=== PATIENT | male | born 1940 | race Caucasian/White ===

== ENCOUNTER 2017-01-27 16:46 | Inpatient (IN) | payer MEDICARE, OTHER ==
[2017-01-27 17:45] LABS: Basophils % (Auto) 0.3 % (0.0-1.8); Hematocrit 52.9 % (35.5-45.6); Hemoglobin 17.9 gm/dl (11.8-15.2); Mean Corpuscular HGB Conc 34 % (32-34); Mean Corpuscular Hemoglobin 30 pg (28-32); Mean Corpuscular Volume 88 fl (84-94); Platelet Count 203 K/mm3 (140-440); Red Blood Count 6.01 M/mm3 (3.65-5.03); White Blood Count 6.4 K/mm3 (4.5-11.0)
[2017-01-27 17:47] LABS: Albumin 5.3 g/dL (3.9-5); Albumin/Globulin Ratio 1.2 %; BUN/Creatinine Ratio 14.8; Bilirubin,Total 1.1 mg/dL (0.1-1.2); Calcium 10.1 mg/dL (8.4-10.2); Chloride 88.8 mmol/L (98-107); Total Protein 9.9 g/dL (6.3-8.2)
[2017-01-27 17:51] LABS: Potassium 4.4 mmol/L (3.6-5.0)
[2017-01-27 18:05] LABS: Bilirubin,Urine NEG (Negative); Blood,Urine NEG (Negative); Ketones,Urine TR mg/dL (Negative); Leukocyte Esterase,Urine NEG (Negative); Mucus,Urine 2+ /HPF; Nitrite,Urine NEG (Negative)
[2017-01-27] MEDS ORDERED: MORPHINE IV ONE (18:07)
[2017-01-27] MEDS ORDERED: NACL 0.9% 1000 ML 2,000 ML IV ONE (18:07)
[2017-01-27] MEDS ORDERED: ZOFRAN IV ONE (18:07)
--- NOTE | 2017-01-27 18:08 | Emergency Department Report ---
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 He is previously unknown to me. He reports no past medical history does not have a primary care doctor. The patient presents to the ER with left lower quadrant abdominal pain, profuse nausea and vomiting for the past 2 days. He indicates the pain increases with palpation and range of motion, and decreases with rest. No testicular pain, no irritative or obstructive urinary symptoms, reports decreasing defecation and flatulence. MD Complaint: abdominal pain -: Gradual Location: LLQ Migration to: no migration Severity: moderate Quality: cramping, aching Consistency: constant Improves With: rest Worsens With: movement Associated Symptoms: vomiting, diarrhea, anorexia - Related Data Home Medications Medication Instructions Recorded Confirmed Last Taken No Known Home Medications [No 01/27/17 01/27/17 Unknown Reported Home Medications] Allergies Allergy/AdvReac Type Severity Reaction Status Date / Time No Known Allergies Allergy Verified 01/27/17 19:48 ED Review of Systems ROS: Stated complaint: NAUSEA/VOMITING Other details as noted in HPI Constitutional: malaise Eyes: denies: eye discharge ENT: denies: epistaxis Respiratory: denies: cough Cardiovascular: denies: chest pain Gastrointestinal: abdominal pain, nausea, vomiting Genitourinary: denies: dysuria Musculoskeletal: denies: back pain Skin: denies: lesions Neurological: weakness. denies: headache ED Past Medical Hx - Past Medical History Previous Medical History?: No - Surgical History Past Surgical History?: Yes Additional Surgical History: right shoulder surgery - Social History Smoking Status: Never Smoker Substance Use Type: None - Medications Home Medications: Home Medications Medication Instructions Recorded Confirmed Last Taken Type No Known Home Medications [No 01/27/17 01/27/17 Unknown History Reported Home Medications] ED Physical Exam - General Limitations: Language Barrier General appearance: alert, in no apparent distress - Head Head exam: Present: atraumatic, normocephalic - Eye Eye exam: Present: normal appearance, EOMI. Absent: nystagmus - ENT ENT exam: Present: normal exam, normal orophraynx, mucous membranes moist, normal external ear exam - Neck Neck exam: Present: normal inspection, full ROM. Absent: tenderness, meningismus - Respiratory Respiratory exam: Present: normal lung sounds bilaterally. Absent: respiratory distress, wheezes, rales, rhonchi, stridor, chest wall tenderness, accessory muscle use, decreased breath sounds, prolonged expiratory - Cardiovascular Cardiovascular Exam: Present: normal rhythm, tachycardia, normal heart sounds. Absent: systolic murmur, diastolic murmur, rubs, gallop - GI/Abdominal GI/Abdominal exam: Present: soft, tenderness, diminished bowel sounds. Absent: distended, guarding, rebound, pulsatile mass - Rectal Rectal exam: Present: deferred - Extremities Exam Extremities exam: Present: normal inspection, full ROM, normal capillary refill. Absent: pedal edema, joint swelling, calf tenderness - Back Exam Back exam: Present: normal inspection, full ROM. Absent: tenderness, CVA tenderness (R), CVA tenderness (L), muscle spasm, paraspinal tenderness, vertebral tenderness - Neurological Exam Neurological exam: Present: alert, oriented X3, other (Extraocular movements intact. Tongue midline. No facial droop. Facial sensation intact to light touch in the V1, V2, V3 distribution bilaterally. 5 and 5 strength in 4 extremities.. Sensation is intact to light touch in 4 extremities.). Absent: motor sensory deficit - Psychiatric Psychiatric exam: Present: normal affect, normal mood - Skin Skin exam: Present: warm, dry, intact, normal color. Absent: rash ED Course Vital Signs 01/27/17 01/27/17 01/27/17 16:57 17:43 18:40 Temperature 89.5 F L 98.4 F Pulse Rate 127 H Respiratory 18 18 Rate Blood Pressure 136/89 Blood Pressure [Right] O2 Sat by Pulse 95 Oximetry 01/27/17 19:00 Temperature Pulse Rate 114 H Respiratory 16 Rate Blood Pressure Blood Pressure 132/70 [Right] O2 Sat by Pulse 93 Oximetry ED Medical Decision Making - Lab Data Result diagrams: 01/28/17 08:26 01/29/17 03:43 Vital Signs 01/27/17 01/27/17 01/27/17 16:57 17:43 18:40 Temperature 89.5 F L 98.4 F Pulse Rate 127 H Respiratory 18 18 Rate Blood Pressure 136/89 Blood Pressure [Right] O2 Sat by Pulse 95 Oximetry 01/27/17 19:00 Temperature Pulse Rate 114 H Respiratory 16 Rate Blood Pressure Blood Pressure 132/70 [Right] O2 Sat by Pulse 93 Oximetry Lab Results 01/27/17 01/27/17 01/27/17 Range/Units 17:07 17:07 17:49 WBC 6.4 (4.5-11.0) K/mm3 RBC 6.01 H (3.65-5.03) M/mm3 Hgb 17.9 H (11.8-15.2) gm/dl Hct 52.9 H (35.5-45.6) % MCV 88 (84-94) fl MCH 30 (28-32) pg MCHC 34 (32-34) % RDW 14.0 (13.2-15.2) % Plt Count 203 (140-440) K/mm3 Lymph % (Auto) 27.3 (13.4-35.0) % [place] % (Auto) 14.8 H (0.0-7.3) % Eos % (Auto) 0.0 (0.0-4.3) % Baso % (Auto) 0.3 (0.0-1.8) % Lymph # 1.7 (1.2-5.4) K/mm3 [place] # 0.9 H (0.0-0.8) K/mm3 Eos # 0.0 (0.0-0.4) K/mm3 Baso # 0.0 (0.0-0.1) K/mm3 Seg Neutrophils % 57.6 (40.0-70.0) % Seg Neutrophils # 3.7 (1.8-7.7) K/mm3 Sodium 142 (137-145) mmol/L Potassium 4.4 (3.6-5.0) mmol/L Chloride 88.8 L (98-107) mmol/L Carbon Dioxide 24 (22-30) mmol/L Anion Gap 34 mmol/L BUN 37 H (9-20) mg/dL Creatinine 2.5 H (0.8-1.5) mg/dL Estimated GFR 25 ml/min BUN/Creatinine Ratio 14.80 % Glucose 255 H (75-100) mg/dL Calcium 10.1 (8.4-10.2) mg/dL Total Bilirubin 1.10 (0.1-1.2) mg/dL AST 52 H (5-40) units/L ALT 60 H (7-56) units/L Alkaline Phosphatase 84 (35-129) units/L Total Protein 9.9 H (6.3-8.2) g/dL Albumin 5.3 H (3.9-5) g/dL Albumin/Globulin Ratio 1.2 % Lipase 17 (13-60) units/L Urine Color [place] (Yellow) Urine Turbidity Slightly-cloudy (Clear) Urine pH 5.0 (5.0-7.0) Ur Specific [place] 1.027 (1.003-1.030) Urine Protein 100 mg/dl (Negative) mg/dL Urine Glucose (UA) 50 (Negative) mg/dL Urine Ketones Tr (Negative) mg/dL Urine Blood Neg (Negative) Urine Nitrite Neg (Negative) Urine Bilirubin Neg (Negative) Urine Urobilinogen 2.0 (<2.0) mg/dL Ur Leukocyte Esterase Neg (Negative) Urine WBC (Auto) 3.0 (0.0-6.0) /HPF Urine RBC (Auto) 2.0 (0.0-6.0) /HPF U Epithel Cells (Auto) 1.0 (0-13.0) /HPF Hyaline Casts 24 /LPF Urine Mucus 2+ /HPF - EKG Data -: EKG Interpreted by Me - EKG Data 01/27/17 20:02 Sinus tachycardia, 119 beats per minute, normal intervals, normal axis, not morphologically consistent with stemi - Radiology Data Radiology results: report reviewed, image reviewed interpreted by me: X-ray the chest is negative for acute disease, air is noted in the stomach. Noncontrast CT scan of the abdomen and pelvis suggest small bowel obstruction. No perforation, abscess or phlegmon. - Medical Decision Making Differential diagnosis: Malignancy, cancer, bowel obstruction, ileus, dehydration, vasomotor nephropathy Assessment and plan: 76-year-old male with symptoms no onset renal insufficiency , tachycardia, abdominal tenderness. Lactic acid ordered and is pending. Afebrile without leukocytosis. CT scan suggests smell bowel obstruction. The patient's clinical presentation, laboratory studies and CT scan findings were discussed with the general surgeon on-call, Dr. Zhong, who recommended nothing by mouth, nasogastric tube, and he will follow in consultation. The case was presented to the Hospital physician, Dr. Razo, who graciously except for the patient to his service for acute renal insufficiency, and small bowel obstruction. Critical care attestation.: If time is entered above; I have spent that time in minutes in the direct care of this critically ill patient, excluding procedure time. ED Disposition Clinical Impression: SBO (small bowel obstruction) ARF (acute renal failure) Qualifiers: Acute renal failure type: unspecified Qualified Code(s): N17.9 - Acute kidney failure, unspecified Disposition: DC-09 OP ADMIT IP TO THIS HOSP Is pt being admited?: Yes Condition: Good
--- NOTE | 2017-01-27 18:47 | Cat Scan Report ---
FINAL REPORT PROCEDURE: CT ABDOMEN PELVIS WO CON TECHNIQUE: Computerized axial tomography of the abdomen and pelvis was performed without intravenous contrast. This study is performed without intravascular contrast material and its sensitivity for abdominal and pelvic pathology, including neoplasms, inflammation, abscess, free fluid, thrombosis, arterial dissection and infarction, is reduced compared with a contrast enhanced study. HISTORY: llq abd pain n/v COMPARISON: No prior studies are available for comparison. FINDINGS: Minimal bronchiectasis is seen in the lower lungs with mild atelectasis and scarring suspected. Very mild pulmonary fibrosis is not excluded anterolaterally in the right CP angle. Stomach is prominently distended with fluid and air. Proximal jejunum is dilated up to 4.2 cm in diameter. There appears to be an abrupt transition zone in the small bowel in the right lower quadrant. There is either contraction of small-bowel or possible focal area of narrowing of the small bowel seen on image 47 of the coronal series. Adhesions could cause the appearance. No free fluid or free intraperitoneal air is seen., Spleen, gallbladder, and pancreas display no abnormalities. The adrenal glands and abdominal aorta are normal in size. Probable cyst is seen in the mid right kidney posteriorly measuring 1.1 cm in diameter. A similar probable cyst in the lower pole of the left kidney measures 1.6 cm. Normal appendix is seen. Bladder is decompressed and not well evaluated. IMPRESSION: Small-bowel obstruction is suspected in the right lower quadrant of the abdomen, in the region of the distal jejunum or proximal ileum. Focal area of narrowing is seen, that could be due to adhesions but may just be contraction of small-bowel in this region.
[2017-01-27] MEDS ORDERED: LIDOCAINE VISCOUS 2% PO ONE (18:52)
[2017-01-27] MEDS ORDERED: XYLOCAINE TOPICAL 4% TP ONE (18:52)
--- NOTE | 2017-01-27 18:52 | History and Physical Report ---
History of Present Illness Chief complaint: My stomach hurts History of present illness: 76 YO Male with NO PMH presents to ED for evaluation. Pt states that he has experienced abdominal pain for the past 2 days with worsening symptoms over the past 1 day. Pain is 7/10, localized to the Left side, and is associated with multiple episodes of nausea and vomiting. Pain is worse with palpation, and movement, but decreased somewhat with rest and non-movement. Pt denies fever, chills, CP, palpitations, syncope, BRBPR, ingestion of food/water from new or different sources, or recent foreign travel. Past History Past Medical History: No medical history, other (reviewed) Past Surgical History: Other (Right shoulder surgery) Social history: single. denies: smoking, alcohol abuse, prescription drug abuse Family history: hypertension Medications and Allergies Allergies Allergy/AdvReac Type Severity Reaction Status Date / Time No Known Allergies Allergy Verified 01/27/17 19:48 Home Medications Medication Instructions Recorded Confirmed Last Taken Type No Known Home Medications [No 01/27/17 01/27/17 Unknown History Reported Home Medications] Review of Systems Constitutional: no weight loss, no weight gain, no fever Ears, nose, mouth and throat: no ear pain, no ear discharge, no tinnitis Cardiovascular: no chest pain, no orthopnea, no palpitations Respiratory: no cough, no cough with sputum, no excessive sputum Gastrointestinal: abdominal pain, nausea, vomiting, no coffee ground emesis, no BRBPR, no hematochezia, no early satiety, no indigestion Genitourinary Male: no dysuria, no hematuria, no flank pain Rectal: no pain, no incontinence, no bleeding Musculoskeletal: no neck stiffness, no low back pain, no leg numbness/tingling Integumentary: no rash, no pruritis, no sores, no wounds, no jaundice Neurological: no head injury, no transient paralysis, no paralysis, no parathesias Psychiatric: no anxiety, no memory loss, no change in sleep habits Endocrine: no cold intolerance, no heat intolerance, no polyphagia, no excessive thirst Hematologic/Lymphatic: no easy bruising, no easy bleeding Allergic/Immunologic: no urticaria, no allergic rhinitis, no wheezing Exam - Constitutional Vitals: Temp Pulse Resp BP Pulse Ox 98.4 F 127 H 18 136/89 95 01/27/17 17:43 01/27/17 16:57 01/27/17 16:57 01/27/17 16:57 01/27/17 16:57 General appearance: Present: mild distress - EENT Eyes: Present: PERRL ENT: hearing intact, clear oral mucosa - Neck Neck: Present: supple, normal ROM - Respiratory Respiratory effort: normal Respiratory: bilateral: CTA - Cardiovascular Heart Sounds: Present: S1 & S2. Absent: rub, click - Extremities Extremities: pulses symmetrical, No edema Peripheral Pulses: within normal limits - Abdominal General gastrointestinal: Present: soft, tender, non-distended, normal bowel sounds. Absent: absent bowel sounds, hepatomegaly, splenomegaly Localized gastrointestinal: tender: diffuse Male genitourinary: Present: normal - Integumentary Integumentary: Present: clear, warm, dry - Musculoskeletal Musculoskeletal: gait normal, strength equal bilaterally - Psychiatric Psychiatric: appropriate mood/affect, intact judgment & insight - Neurologic Neurologic: CNII-XII intact, moves all extremities Results - Labs CBC & Chem 7: 01/27/17 17:07 01/27/17 17:07 Labs: Abnormal lab results 01/27/17 01/27/17 Range/Units 17:07 17:07 RBC 6.01 H (3.65-5.03) M/mm3 Hgb 17.9 H (11.8-15.2) gm/dl Hct 52.9 H (35.5-45.6) % [place] % (Auto) 14.8 H (0.0-7.3) % [place] # 0.9 H (0.0-0.8) K/mm3 Chloride 88.8 L (98-107) mmol/L BUN 37 H (9-20) mg/dL Creatinine 2.5 H (0.8-1.5) mg/dL Glucose 255 H (75-100) mg/dL AST 52 H (5-40) units/L ALT 60 H (7-56) units/L Total Protein 9.9 H (6.3-8.2) g/dL Albumin 5.3 H (3.9-5) g/dL Assessment and Plan - Patient Problems (1) SBO (small bowel obstruction) Current Visit: Yes Status: Acute Plan to address problem: Bowel rest, IVF replacement, serial abdominal exam, NGT to LWS, Surgery team consulted in ED (2) ARF (acute renal failure) Current Visit: Yes Status: Acute Qualifiers: Acute renal failure type: unspecified Qualified Code(s): N17.9 - Acute kidney failure, unspecified Plan to address problem: IVF replacement, monitor uop q shift, supportive care (3) DVT prophylaxis Current Visit: Yes Status: Acute
[2017-01-27] MEDS ORDERED: PROVENTIL IH PRN (18:54)
[2017-01-27] MEDS ORDERED: ZOFRAN IV PRN (18:54)
[2017-01-27] MEDS: ZOSYN/NS 3.375GM/50ML 3.375 GM/50 ML BAG IV SCH (19:52)
[2017-01-27] MEDS: NACL 0.45% 1000 ML 1,000 ML IV SCH (19:52)
[2017-01-28] MEDS: ZOSYN/NS 3.375GM/50ML 3.375 GM/50 ML BAG IV SCH ×4 (00:26→18:11)
--- NOTE | 2017-01-28 07:30 | XRay Report ---
AP CHEST: HISTORY: chest pain AP view of the chest demonstrates a normal mediastinal and cardiac contour with clear lungs and normal bony and soft tissue structures. IMPRESSION: Unremarkable AP chest.
--- NOTE | 2017-01-28 08:01 | Progress Note ---
Assessment and Plan Assessment and plan: 76-year-old male with a significant past medical history who presents with abdominal pain 2 days with nausea and vomiting. He was found to have small bowel obstruction. Sepsis due to acute enteritis continue sepsis pathway continue abx and IVF Small bowel obstruction Surgery consult appreciated, continue NG tube to low intermittent suction, attempts at conservative management for now. Continue IV fluids lactic acidosis Likely due to SBO and enteritis, treat underlying cause. Conduct infection workup Fever of 101.8 Chest x-ray was really negative for pneumonia, will obtain blood culture UA and urine culture on empiric abx for enteritis Acute kidney injury/vasomotor nephropathy Place Hamm catheter, nephrology consulted Continue IV fluids DVT prophylaxis Heparin subcutaneous History Interval history: Abdominal pain is much improved, he is not on nausea is no longer vomiting. His nurse relates that he had a large outputs from his nasal-gastric tube which is to low intermittent suction. He is complaining of some thirst. But he feels much better overall. He denies any previous abdominal surgeries. Hospitalist Physical - Physical exam Narrative exam: General: Patient appears well in no distress HEENT: MMM, EOMI cardiac: S1-S2 heard lungs: clear to auscultation, abdomen: soft, nontender, distended, hypoactive bowel sounds positive extremities: no edema clubbing or cyanosis Skin: no rash or lesion Neuro: no focal deficit Psych: appropriate behavior and mood, cognition intact - Constitutional Vitals: Temp Pulse Resp BP Pulse Ox 101.8 F H 109 H 20 139/74 90 01/27/17 21:52 01/27/17 21:52 01/27/17 21:52 01/27/17 21:52 01/27/17 21:52 General appearance: Present: mild distress Results - Labs CBC & Chem 7: 01/28/17 08:26 01/28/17 08:26 Labs: Laboratory Last Values WBC 6.4 K/mm3 (4.5-11.0) 01/27/17 17:07 RBC 6.01 M/mm3 (3.65-5.03) H 01/27/17 17:07 Hgb 17.9 gm/dl (11.8-15.2) H 01/27/17 17:07 Hct 52.9 % (35.5-45.6) H 01/27/17 17:07 MCV 88 fl (84-94) 01/27/17 17:07 MCH 30 pg (28-32) 01/27/17 17:07 MCHC 34 % (32-34) 01/27/17 17:07 RDW 14.0 % (13.2-15.2) 01/27/17 17:07 Plt Count 203 K/mm3 (140-440) 01/27/17 17:07 Lymph % (Auto) 27.3 % (13.4-35.0) 01/27/17 17:07 [place] % (Auto) 14.8 % (0.0-7.3) H 01/27/17 17:07 Eos % (Auto) 0.0 % (0.0-4.3) 01/27/17 17:07 Baso % (Auto) 0.3 % (0.0-1.8) 01/27/17 17:07 Lymph # 1.7 K/mm3 (1.2-5.4) 01/27/17 17:07 [place] # 0.9 K/mm3 (0.0-0.8) H 01/27/17 17:07 Eos # 0.0 K/mm3 (0.0-0.4) 01/27/17 17:07 Baso # 0.0 K/mm3 (0.0-0.1) 01/27/17 17:07 Seg Neutrophils % 57.6 % (40.0-70.0) 01/27/17 17:07 Seg Neutrophils # 3.7 K/mm3 (1.8-7.7) 01/27/17 17:07 Sodium 142 mmol/L (137-145) 01/27/17 17:07 Potassium 4.4 mmol/L (3.6-5.0) 01/27/17 17:07 Chloride 88.8 mmol/L (98-107) L 01/27/17 17:07 Carbon Dioxide 24 mmol/L (22-30) 01/27/17 17:07 Anion Gap 34 mmol/L 01/27/17 17:07 BUN 37 mg/dL (9-20) H 01/27/17 17:07 Creatinine 2.5 mg/dL (0.8-1.5) H 01/27/17 17:07 Estimated GFR 25 ml/min 01/27/17 17:07 BUN/Creatinine Ratio 14.80 % 01/27/17 17:07 Glucose 255 mg/dL (75-100) H 01/27/17 17:07 Lactic Acid 3.50 mmol/L (0.7-2.0) H* 01/28/17 06:50 Calcium 10.1 mg/dL (8.4-10.2) 01/27/17 17:07 Total Bilirubin 1.10 mg/dL (0.1-1.2) 01/27/17 17:07 AST 52 units/L (5-40) H 01/27/17 17:07 ALT 60 units/L (7-56) H 01/27/17 17:07 Alkaline Phosphatase 84 units/L (35-129) 01/27/17 17:07 Total Creatine Kinase 328 units/L (55-170) H 01/27/17 19:50 Total Protein 9.9 g/dL (6.3-8.2) H 01/27/17 17:07 Albumin 5.3 g/dL (3.9-5) H 01/27/17 17:07 Albumin/Globulin Ratio 1.2 % 01/27/17 17:07 Lipase 17 units/L (13-60) 01/27/17 17:07 Urine Color [place] (Yellow) 01/27/17 17:49 Urine Turbidity Slightly-cloudy (Clear) 01/27/17 17:49 Urine pH 5.0 (5.0-7.0) 01/27/17 17:49 Ur Specific [place] 1.027 (1.003-1.030) 01/27/17 17:49 Urine Protein 100 mg/dl mg/dL (Negative) 01/27/17 17:49 Urine Glucose (UA) 50 mg/dL (Negative) 01/27/17 17:49 Urine Ketones Tr mg/dL (Negative) 01/27/17 17:49 Urine Blood Neg (Negative) 01/27/17 17:49 Urine Nitrite Neg (Negative) 01/27/17 17:49 Urine Bilirubin Neg (Negative) 01/27/17 17:49 Urine Urobilinogen 2.0 mg/dL (<2.0) 01/27/17 17:49 Ur Leukocyte Esterase Neg (Negative) 01/27/17 17:49 Urine WBC (Auto) 3.0 /HPF (0.0-6.0) 01/27/17 17:49 Urine RBC (Auto) 2.0 /HPF (0.0-6.0) 01/27/17 17:49 U Epithel Cells (Auto) 1.0 /HPF (0-13.0) 01/27/17 17:49 Hyaline Casts 24 /LPF 01/27/17 17:49 Urine Mucus 2+ /HPF 01/27/17 17:49 - Imaging and Cardiology CT scan - abdomen: image reviewed (small bowel obstruction and around the area of the jejunum, enteritis noted)
--- NOTE | 2017-01-28 08:19 | Consultation ---
History of Present Illness Consult date: 01/28/17 Reason for consult: other (nausea and vomiting,no abd pain , just discomfort from distension) - History of present illness History of present illness: This is a pleasant 76 year old man who is a reliable historian and speaks Thai well and understands it, who complains of a 48 hour hx of increasing abd distention associated with nausea and vomiting who presented for evaluation to the ER.His WBC is normal, he presented with S tach, normal BP, increased BUN and creatinine with elevated lactic acid, he never really had pain, the CT abd pelvis was reviewed with Dr. Paredes (RAD) reveals a partial small bowel pattern with transition point in mid jejunum, the patient has a virgin abd and has never had surgery. There is no obvious mass or adenopathy,and really the CT is not that impressive. He certainly is volume contracted and is recieving iv fluids,and NG decompression. The amount of NG output has yet to be documented. His abd exam is benign, certainly no rebound or guarding, obese but minimal abd distension. Past History Past Medical History: No medical history, other (reviewed) Past Surgical History: Other (Right shoulder surgery) Social history: single. denies: smoking, alcohol abuse, prescription drug abuse Family history: hypertension Medications and Allergies Allergies Allergy/AdvReac Type Severity Reaction Status Date / Time No Known Allergies Allergy Verified 01/27/17 19:48 Home Medications Medication Instructions Recorded Confirmed Last Taken Type No Known Home Medications [No 01/27/17 01/27/17 Unknown History Reported Home Medications] Active Meds: Active Medications Albuterol (Proventil) 2.5 mg IH Q4HRT PRN PRN Reason: Shortness Of Breath Piperacillin Sod/Tazobactam Sod (Zosyn/Ns 3.375gm/50ml) 3.375 gm in 50 mls @ 100 mls/hr IV Q6HR CORIE Last Admin: 01/28/17 05:10 Dose: 100 mls/hr Sodium Chloride (Nacl 0.45% 1000 Ml) 1,000 mls @ 100 mls/hr IV DIRECT CORIE Last Admin: 01/27/17 19:52 Dose: 100 mls/hr Ondansetron HCl (Zofran) 4 mg IV Q8H PRN PRN Reason: N/V unrelieved by Reglan Review of Systems - Constitutional other (nausea and vomiting) - Gastrointestinal nausea, vomiting, other (had bowel movement this am) Exam Vital Signs Temp Pulse Resp BP Pulse Ox 89.5 F L 127 H 18 136/89 95 01/27/17 16:57 01/27/17 16:57 01/27/17 16:57 01/27/17 16:57 01/27/17 16:57 - General physical appearance Positive: no distress - Eyes Positive: PERRL, normal occular movement - ENT Positive: normal pinna, normal nares, normal mucosa, no hearing loss, no congestion - Neck Positive: no masses, no bruits, trachea midline, no venous distension - Respiratory Positive: normal expansion, normal respiratory effort, clear to auscultation - Cardiovascular Heart Sounds: Present: S1 & S2. Absent: rub, click - Extremities Extremities: no ischemia Peripheral Pulses: within normal limits - Breasts Breasts: normal - Abdomen Abdomen: Present: soft, bowel sounds hypoactive, other (benign exam, soft abdomen) Hernia: none - Genitourinary Male Genitourinary: deferred - Neurologic Neurologic: alert and oriented to time, place and person, motor strength and sensation are grossly intact - Psychiatric Psychiatric: appropriate mood/affect, intact judgment & insight Results - Labs 01/27/17 17:07 01/27/17 17:07 Abnormal lab results 01/27/17 01/27/17 01/28/17 Range/Units 19:50 19:50 06:50 Lactic Acid 4.30 H* 3.50 H* (0.7-2.0) mmol/L Total Creatine Kinase 328 H (55-170) units/L Assessment and Plan Illeus versus partial SBO severe volume contraction, with increased creat and BUN with elevation of lactic acid no schaeffer recc conservative management for now, iv fluids-consider renal consult, NG to LIS, serial labs consider schaeffer-per renal recc-to moniter u/o more closely I will follow, I really do not see Surgical indications at present time.
[2017-01-28 08:46] LABS: Basophils % (Auto) 0.5 % (0.0-1.8); Eosinophils % (Auto) 0.1 % (0.0-4.3); Hematocrit 47.8 % (35.5-45.6); Hemoglobin 15.8 gm/dl (11.8-15.2); Mean Corpuscular HGB Conc 33 % (32-34); Mean Corpuscular Hemoglobin 29 pg (28-32); Mean Corpuscular Volume 88 fl (84-94); Platelet Count 165 K/mm3 (140-440); Red Blood Count 5.42 M/mm3 (3.65-5.03); White Blood Count 8.1 K/mm3 (4.5-11.0)
--- NOTE | 2017-01-28 09:03 | Admit Criteria Form ---
Admission Criteria Documentation: ABDOMINAL PAIN Clinical Indications for Admission to Inpatient Care ( afognak/check or initial the applicable condition/criteria): Admission is indicated for ANY ONE of the following (1)(2)(3)(4)(5)(6): [ ]I. Surgery needed that cannot be performed on ambulatory basis [ ]II. Peritoneal signs present (eg, rebound tenderness, rigidity) [ ]III. Evaluation requires patient to not eat or drink for extended period ( eg, more than 24 hours). [X ]IV. Inpatient admission required[B] rather than observation care (see Abdominal Pain: Observation Care guideline as appropriate) because of ANY ONE of the following(7)(8)(9): [ ] a) Hemodynamic instability [ ]b) Severe pain requiring acute inpatient management [ ]c) Identification of etiology or finding that requires inpatient care (eg, aortic dissection, free air,bowel ischemia)(10) [ ]d) Absent bowel sounds with complete ileus (11) [X ]e) Signs of intestinal obstruction[C] [ ]f) Suspected toxic megacolon [ ]g) Severe electrolyte abnormalities requiring inpatient care [ ]h) High fever or infection requiring inpatient admission as indicated by ANY ONE of the following (12)(13): [ ]i) Appropriate outpatient or observation care antimicrobial treatment unavailable, not effective, or not feasible [ ]ii) Documented bacteremia [ ]iii) Temperature greater than 104.9 degrees F (40.5 degrees C) (oral) [ ]iv) Temperature greater than 103.1 degrees F (39.5 degrees C) ( oral) or less than 96.8 degrees F (36 degrees C) (rectal) that does not respond to all emergency treatment measures [ ]i) IV fluid required rather than oral rehydration to replace significant ongoing (eg, for greater than 24 hours) losses (greater than 3 L/m2 per day)(14)(15) [ ]j) Percutaneous or open drainage (eg, abscess, biliary tract) procedures [ ]k) Parenteral nutrition regimen that must be implemented on inpatient basis [ ]l) Other condition, treatment, or monitoring requiring inpatient admission Extended stay beyond goal length of stay may be needed for (1)(3)(4)(10)(16): [ ]a) Surgery (e.g., colectomy, revascularization procedure) [ ]b) Persistent abdominal pain with suspected intra-abdominal process [ ]c) Diagnosed condition requiring continued stay (e.g., pancreatitis, complicated diverticulitis) The original [facility] [employer] content created by [facility] has been revised. The portions of the content which have been revised are identified through the use of italic text or in bold, and [facility] has neither reviewed nor approved the modified material.All other unmodified content is copyright [facility]. Please see references footnoted in the original [facility] edition 2017 Admission Criteria Met: Yes
[2017-01-28 09:12] LABS: Albumin 4.3 g/dL (3.9-5); Albumin/Globulin Ratio 1.1 %; BUN/Creatinine Ratio 22.5; Bilirubin,Total 1.1 mg/dL (0.1-1.2); Chloride 91.5 mmol/L (98-107); Total Protein 8.2 g/dL (6.3-8.2)
[2017-01-28 09:19] LABS: Potassium 3.9 mmol/L (3.6-5.0)
[2017-01-28] MEDS: HEPARIN SUB-Q SCH ×2 (14:30→22:26)
[2017-01-28 17:10] LABS: Bilirubin,Urine NEG (Negative); Blood,Urine SM (Negative); Ketones,Urine NEG (Negative); Leukocyte Esterase,Urine NEG (Negative); Nitrite,Urine NEG (Negative); Urobilinogen,Urine < 2.0 mg/dL (<2.0)
[2017-01-28] MEDS: NACL 0.45% 1000 ML 1,000 ML IV SCH (19:43)
[2017-01-29] MEDS: ZOSYN/NS 3.375GM/50ML 3.375 GM/50 ML BAG IV SCH ×4 (01:08→18:32)
[2017-01-29 04:49] LABS: BUN/Creatinine Ratio 30.71; Calcium 7.5 mg/dL (8.4-10.2); Chloride 97.2 mmol/L (98-107); Potassium 3.3 mmol/L (3.6-5.0)
[2017-01-29] MEDS: NACL 0.45% 1000 ML 1,000 ML IV SCH (05:56)
[2017-01-29] MEDS: HEPARIN SUB-Q SCH ×2 (06:00→15:03)
--- NOTE | 2017-01-29 07:43 | Event Note ---
Date: 01/29/17 No complaints of abd pain, VSS, low grade temp, renal function much improved with hydration, abd soft, ND, hypoactive bs, no rebound or guarding, nontender, patient had bowel movement, WBC normal, NSR, sinus tach resolved, will get gastrograffin small bowel series today through ng to rule out SBO, if normal d/ c NG and adv diet.good urine output, 600cc out ng.
--- NOTE | 2017-01-29 09:19 | Consultation ---
History of Present Illness - Reason for Consult Consult date: 01/29/17 acute renal failure - History of Present Illness Patient is a 76 YO HM without any medical history presented to the ED for evaluation of abdominal pain of 2 days duration. Pain was 7/10, localized to the Left side and was associated with multiple episodes of nausea and vomiting. The symptoms are worse for 1 day prior to presentation. His PO intake has been poor for the past few days. Pt denies diarrhea, fever, chills, CP, dizziness, syncope or recent foreign travel. His creatinine was 2.5 on admission and has improved to 1.4 today. Baseline renal function is not available at this time. Past History Past Medical History: No medical history Past Surgical History: Other (Right shoulder surgery) Social history: single. denies: smoking, alcohol abuse, prescription drug abuse Family history: hypertension Medications and Allergies Allergies Allergy/AdvReac Type Severity Reaction Status Date / Time No Known Allergies Allergy Verified 01/27/17 19:48 Home Medications Medication Instructions Recorded Confirmed Last Taken Type Ciprofloxacin HCl [Ciprofloxacin 500 mg PO Q12H #10 tab 01/30/17 Unknown Rx TAB] Ondansetron [Zofran Odt] 4 mg PO Q6HR PRN #10 tab.rapdis 01/30/17 Unknown Rx Phosphorus #1 [K-Phos Neutral] 250 mg PO BID #14 tablet 01/30/17 Unknown Rx metroNIDAZOLE [Flagyl] 500 mg PO Q8HR #14 tablet 01/30/17 Unknown Rx Active Meds: Active Medications Albuterol (Proventil) 2.5 mg IH Q4HRT PRN PRN Reason: Shortness Of Breath Heparin Sodium (Porcine) (Heparin) 5,000 unit SUB-Q Q8HR CORIE Last Admin: 01/29/17 06:00 Dose: 5,000 unit Piperacillin Sod/Tazobactam Sod (Zosyn/Ns 3.375gm/50ml) 3.375 gm in 50 mls @ 100 mls/hr IV Q6HR CORIE Last Admin: 01/29/17 05:55 Dose: 100 mls/hr Sodium Chloride (Nacl 0.45% 1000 Ml) 1,000 mls @ 100 mls/hr IV DIRECT CORIE Last Admin: 01/29/17 05:56 Dose: 100 mls/hr Ondansetron HCl (Zofran) 4 mg IV Q8H PRN PRN Reason: N/V unrelieved by Reglan Review of Systems Constitutional: anorexia, poor appetite, no weight loss, no weight gain, no fever, no chills Ears, nose, mouth and throat: no sinus pain, no epistaxis Cardiovascular: no chest pain, no orthopnea, no edema, no syncope, no lightheadedness, no shortness of breath, no dyspnea on exertion, no high blood pressure, no leg edema Respiratory: no cough, no hemoptysis, no shortness of breath Gastrointestinal: abdominal pain, nausea, vomiting, no diarrhea, no hematemesis , no melena Genitourinary Male: no dysuria, no hematuria Rectal: no bleeding Musculoskeletal: no redness of joints Integumentary: no rash, no wounds, no jaundice Neurological: no paralysis, no weakness, no aphasia Psychiatric: no disorientation Endocrine: no polyuria, no weight change Hematologic/Lymphatic: no easy bleeding Allergic/Immunologic: no urticaria, no persistent infections Exam - Vital Signs Vital signs: Vital Signs Temp Pulse Resp BP Pulse Ox 89.5 F L 127 H 18 136/89 95 01/27/17 16:57 01/27/17 16:57 01/27/17 16:57 01/27/17 16:57 01/27/17 16:57 - General Appearance General appearance: well-developed, well-nourished, appears stated age, obese, other (no distress) EENT: ATNC, PERRL, mucous membranes dry, hearing intact, vision intact Neck: Present: neck supple, trachea midline Respiratory: Clear to Ascultation Heart: regular, S1S2, no murmurs Gastrointestinal: Present: normoactive bowel sounds, tenderness, distended, obese Integumentary: no rash Neurologic: no focal deficit, no asterixis, CN 3-12 intact Musculoskeletal: Present: other (no edema) Psychiatric: mood/affect appropriate, cooperative Results - Lab Results 01/28/17 08:26 01/30/17 05:17 Most recent lab results Calcium 7.5 mg/dL (8.4-10.2) L 01/29/17 03:43 - Image Kidney/bladder ultrasound: report reviewed Assessment and Plan - Patient Problems (1) ARF (acute renal failure) Status: Acute Qualifiers: Acute renal failure type: unspecified Qualified Code(s): N17.9 - Acute kidney failure, unspecified Plan to address problem: Hemodynamic RAO in the setting of volume depletion. Renal function is improving. Continue IV fluids. (2) Volume depletion Status: Acute Plan to address problem: Continue IV fluids. (3) SBO (small bowel obstruction) Status: Acute
[2017-01-29] MEDS ORDERED: NS 0.45/KCL 20MEQ 20 MEQ/1,000 ML BAG IV SCH (11:00)
--- NOTE | 2017-01-29 11:23 | Event Note ---
Date: 01/29/17 small bowel series normal, no small bowel obstruction, d/c ng and advance diet as tolerated.
--- NOTE | 2017-01-29 12:01 | Fluoroscopy Report ---
SMALL BOWEL SERIES: INDICATION: Small bowel obstruction. COMPARISON: 01/27/2017 CT. FINDINGS: Gastrografin small bowel series performed. Oil Rigger view demonstrates few air-containing small bowel loops measuring 3.5-4 cm caliber in the left hemiabdomen. Air noted along the descending colon. Osteopenic bones with few lower lumbar degenerative changes. Bilateral acetabular spurring/hypertrophy. Few right pelvic phleboliths. Serial abdominal radiographs subsequently obtained after administration of oral contrast and demonstrate antegrade progression with rapid small bowel transit time of 45 minutes. No focal suspicious filling defect, mass, angulation or tethering. Spot radiographs demonstrate normal terminal ileum. CONCLUSION: 1. No evidence of high-grade bowel obstruction, though few proximal to mid jejunal loops in the left hemiabdomen prominent/mildly dilated to approximately 4 cm caliber and may represent a mild ileus or partial obstruction, as described. Distal small bowel appears decompressed/smaller caliber. 2. Few other incidental findings, as above. Thank you for the opportunity to participate in this patient's care.
[2017-01-29] MEDS: NS 0.45/KCL 20MEQ 20 MEQ/1,000 ML BAG IV SCH (15:06)
--- NOTE | 2017-01-29 16:09 | Progress Note ---
Assessment and Plan Assessment and plan: 76-year-old male with a significant past medical history who presents with abdominal pain 2 days with nausea and vomiting. He was found to have small bowel obstruction. surgery input appreciated "small bowel series normal, no small bowel obstruction, d/c ng and advance diet as tolerated." Sepsis due to acute enteritis continue sepsis pathway continue abx and IVF UA negative, chest x-ray negative, blood cultures no growth to date Small bowel obstruction Resolving, NG tube has been discontinued, advance diet as tolerated. lactic acidosis Likely due to SBO and enteritis, treat underlying cause. Acute kidney injury/vasomotor nephropathy Continue IV fluids, clinically improving. DVT prophylaxis Lovenox subcutaneous History Interval history: He reports that he has no abdominal pain, denies nausea, denies vomiting. He's been passing gas and had 4 bowel movements. Hospitalist Physical - Physical exam Narrative exam: General: Patient appears well in no distress HEENT: MMM, EOMI cardiac: S1-S2 heard lungs: clear to auscultation, abdomen: soft, nontender, distended, hypoactive bowel sounds positive extremities: no edema clubbing or cyanosis Skin: no rash or lesion Neuro: no focal deficit Psych: appropriate behavior and mood, cognition intact - Constitutional Vitals: Temp Pulse Resp BP Pulse Ox 99.1 F 78 20 134/80 95 01/29/17 04:00 01/29/17 04:00 01/29/17 04:00 01/29/17 04:00 01/29/17 00:00 General appearance: Present: mild distress Results - Labs CBC & Chem 7: 01/28/17 08:26 01/29/17 03:43 Labs: Laboratory Last Values WBC 8.1 K/mm3 (4.5-11.0) 01/28/17 08:26 RBC 5.42 M/mm3 (3.65-5.03) H 01/28/17 08:26 Hgb 15.8 gm/dl (11.8-15.2) H 01/28/17 08:26 Hct 47.8 % (35.5-45.6) H 01/28/17 08:26 MCV 88 fl (84-94) 01/28/17 08:26 MCH 29 pg (28-32) 01/28/17 08:26 MCHC 33 % (32-34) 01/28/17 08:26 RDW 14.0 % (13.2-15.2) 01/28/17 08:26 Plt Count 165 K/mm3 (140-440) 01/28/17 08:26 Lymph % (Auto) 27.1 % (13.4-35.0) 01/28/17 08:26 Wirt % (Auto) 13.1 % (0.0-7.3) H 01/28/17 08:26 Eos % (Auto) 0.1 % (0.0-4.3) 01/28/17 08:26 Baso % (Auto) 0.5 % (0.0-1.8) 01/28/17 08:26 Lymph # 2.2 K/mm3 (1.2-5.4) 01/28/17 08:26 Wirt # 1.1 K/mm3 (0.0-0.8) H 01/28/17 08:26 Eos # 0.0 K/mm3 (0.0-0.4) 01/28/17 08:26 Baso # 0.0 K/mm3 (0.0-0.1) 01/28/17 08:26 Seg Neutrophils % 59.2 % (40.0-70.0) 01/28/17 08:26 Seg Neutrophils # 4.8 K/mm3 (1.8-7.7) 01/28/17 08:26 Sodium 144 mmol/L (137-145) 01/29/17 03:43 Potassium 3.3 mmol/L (3.6-5.0) L 01/29/17 03:43 Chloride 97.2 mmol/L (98-107) L 01/29/17 03:43 Carbon Dioxide 26 mmol/L (22-30) 01/29/17 03:43 Anion Gap 24 mmol/L 01/29/17 03:43 BUN 43 mg/dL (9-20) H 01/29/17 03:43 Creatinine 1.4 mg/dL (0.8-1.5) 01/29/17 03:43 Estimated GFR 49 ml/min 01/29/17 03:43 BUN/Creatinine Ratio 30.71 % 01/29/17 03:43 Glucose 136 mg/dL (75-100) H 01/29/17 03:43 Lactic Acid 3.00 mmol/L (0.7-2.0) H* 01/28/17 08:26 Calcium 7.5 mg/dL (8.4-10.2) L 01/29/17 03:43 Total Bilirubin 1.10 mg/dL (0.1-1.2) 01/28/17 08:26 AST 54 units/L (5-40) H 01/28/17 08:26 ALT 50 units/L (7-56) 01/28/17 08:26 Alkaline Phosphatase 61 units/L (35-129) 01/28/17 08:26 Total Creatine Kinase 328 units/L (55-170) H 01/27/17 19:50 Total Protein 8.2 g/dL (6.3-8.2) 01/28/17 08:26 Albumin 4.3 g/dL (3.9-5) 01/28/17 08:26 Albumin/Globulin Ratio 1.1 % 01/28/17 08:26 Lipase 17 units/L (13-60) 01/27/17 17:07 Urine Color Yellow (Yellow) 01/28/17 10:15 Urine Turbidity Clear (Clear) 01/28/17 10:15 Urine pH 5.0 (5.0-7.0) 01/28/17 10:15 Ur Specific [place] 1.028 (1.003-1.030) 01/28/17 10:15 Urine Protein 100 mg/dl mg/dL (Negative) 01/28/17 10:15 Urine Glucose (UA) Neg mg/dL (Negative) 01/28/17 10:15 Urine Ketones Neg mg/dL (Negative) 01/28/17 10:15 Urine Blood Sm (Negative) 01/28/17 10:15 Urine Nitrite Neg (Negative) 01/28/17 10:15 Urine Bilirubin Neg (Negative) 01/28/17 10:15 Urine Urobilinogen < 2.0 mg/dL (<2.0) 01/28/17 10:15 Ur Leukocyte Esterase Neg (Negative) 01/28/17 10:15 Urine WBC (Auto) 3.0 /HPF (0.0-6.0) 01/28/17 10:15 Urine RBC (Auto) 2.0 /HPF (0.0-6.0) 01/28/17 10:15 U Epithel Cells (Auto) < 1.0 /HPF (0-13.0) 01/28/17 10:15 Hyaline Casts 24 /LPF 01/27/17 17:49 Urine Mucus 2+ /HPF 01/27/17 17:49
[2017-01-29] MEDS ORDERED: CALCIUM GLUCONATE 2,000 MG in NACL 0.9% 100 ML IV ONE (17:00)
[2017-01-29] MEDS ORDERED: LOVENOX SUB-Q SCH (22:00)
[2017-01-30] MEDS: ZOSYN/NS 3.375GM/50ML 3.375 GM/50 ML BAG IV SCH ×3 (00:21→12:20)
[2017-01-30] MEDS: NS 0.45/KCL 20MEQ 20 MEQ/1,000 ML BAG IV SCH (04:05)
[2017-01-30 06:26] LABS: Anion Gap 17 mmol/L; BUN/Creatinine Ratio 21.81; Blood Urea Nitrogen 24 mg/dL (9-20); Calcium 8.1 mg/dL (8.4-10.2); Carbon Dioxide 29 mmol/L (22-30); Chloride 95.9 mmol/L (98-107); Glucose 159 mg/dL (75-100); Potassium 3.5 mmol/L (3.6-5.0); Sodium 138 mmol/L (137-145)
--- NOTE | 2017-01-30 07:47 | Discharge Summary ---
Providers - Providers Date of Admission: 01/27/17 18:54 Attending physician: DILIP HORTON MD 01/28/17 10:20 Consult to Physician [CONS] Routine Consulting Provider: ADILENE HARPER Reason For Exam: RAO Place consult to:: DR. HEAD Notified:: ANSWERING SERVICES Phone number called:: [phone] Was contact made?: Yes If yes, spoke with:: MONA Time called:: 10:36 Comment:: CORRIE NOTIFIED Primary care physician: CHIEF RESOURCE OFFICER Hospitalization Condition: Good Hospital course: 76-year-old manwith a past medical history who presents with abdominal pain 2 days with nausea and vomiting. Was found to have small bowel obstruction. Was also found to have acute enteritis causing sepsis. Patient received IV antibiotics he received nasogastric tube which was put to suction. After decompression of his bowel, he clinically improved. He also suffered from acute kidney failure which resolved with IV fluids. Patient's diet was advanced and he tolerated the advance diet. He was seen in conjunction with general surgery and nephrology, and his electrolyte or repleted Discharge diagnoses Sepsis Acute enteritis Small bowel obstruction Hypocalcemia Lactic acidosis Acute kidney injury Vasomotor nephropathy Hypokalemia Hypophosphatemia Disposition: DC-01 TO HOME OR SELFCARE Time spent for discharge: 33 minutes Core Measure Documentation - Palliative Care Palliative Care/ Comfort Measures: Not Applicable - Core Measures Any of the following diagnoses?: none Exam - Constitutional Vitals: Temp Pulse Resp BP Pulse Ox 98.9 F 73 20 144/69 98 01/29/17 23:20 01/29/17 23:20 01/29/17 23:20 01/29/17 23:20 01/29/17 23:20 General appearance: Present: no acute distress, well-nourished - EENT Eyes: Present: PERRL ENT: hearing intact, clear oral mucosa - Neck Neck: Present: supple, normal ROM - Respiratory Respiratory effort: normal Respiratory: bilateral: CTA - Cardiovascular Heart Sounds: Present: S1 & S2. Absent: rub, click - Extremities Extremities: pulses symmetrical, No edema Peripheral Pulses: within normal limits - Abdominal General gastrointestinal: Present: soft, non-tender, non-distended, normal bowel sounds Male genitourinary: Present: normal - Integumentary Integumentary: Present: clear, warm, dry - Musculoskeletal Musculoskeletal: gait normal, strength equal bilaterally - Psychiatric Psychiatric: appropriate mood/affect, intact judgment & insight - Neurologic Neurologic: CNII-XII intact, moves all extremities Plan Follow up with: PRIMARY CARE, [Primary Care Provider] - 3-5 Days Forms: Work/School Release Form Prescriptions: Ciprofloxacin HCl [Ciprofloxacin TAB] 500 mg PO Q12H #10 tab metroNIDAZOLE [Flagyl] 500 mg PO Q8HR #14 tablet Ondansetron [Zofran Odt] 4 mg PO Q6HR PRN #10 tab.rapdis PRN Reason: Nausea Phosphorus #1 [K-Phos Neutral] 250 mg PO BID #14 tablet
--- NOTE | 2017-01-30 08:18 | Event Note ---
Date: 01/30/17 Pt has normal transit time with gastrograffin passing from stomach to colon in less than one hour, kidney function has returned to baseline, I will sign off, please reconsult me if needed. OK to discharge patient from General Surgery standpoint.
[2017-01-30 08:35] VITALS: BP 144/78
--- NOTE | 2017-01-30 08:46 | Progress Note ---
Assessment and Plan - Patient Problems (1) ARF (acute renal failure) Status: Acute Qualifiers: Acute renal failure type: unspecified Qualified Code(s): N17.9 - Acute kidney failure, unspecified Plan to address problem: Hemodynamic RAO in the setting of volume depletion. Renal function continue to improve. F/u with me 1-2 weeks. (2) Volume depletion Status: Acute Plan to address problem: Improved. (3) SBO (small bowel obstruction) Status: Acute Subjective Date of service: 01/30/17 Interval history: Patient is feeling better. Objective - Vital Signs Vital signs: Vital Signs - 12hr 01/29/17 01/30/17 23:20 08:00 Temperature 98.9 F 98.3 F Pulse Rate 73 96 H Respiratory 20 20 Rate Blood Pressure 144/69 144/78 O2 Sat by Pulse 98 96 Oximetry - General Appearance General appearance: well-developed, well-nourished, appears stated age, obese, other (no distress) EENT: ATNC, PERRL, mucous membranes moist, hearing intact, vision intact Neck: supple Respiratory: Present: Clear to Ascultation Cardiology: regular, S1S2, no murmurs Gastrointestinal: normoactive bowel sounds, no tenderness, obese Integumentary: no rash Neurologic: no focal deficit, no asterixis, alert and oriented x3, CN 3-12 intact Musculoskeletal: other (no edema) Psychiatric: mood/affect appropriate, cooperative - Lab 01/28/17 08:26 01/30/17 05:17 Most recent lab results Calcium 8.1 mg/dL (8.4-10.2) L 01/30/17 05:17 Phosphorus 1.40 mg/dL (2.5-4.5) L 01/30/17 05:17 Magnesium 2.50 mg/dL (1.7-2.3) H 01/30/17 05:17
[2017-01-30] MEDS ORDERED: KPHOS 45 MMOL in NACL 0.9% 500 ML 500 ML IV ONE (10:00)
== END 2017-01-30 14:15 | disposition home or self-care (01) | DRG 871 ==
LOC: ED 16:46 → 3A 18:54
PROVIDERS: ADMIT Internal Medicine; ATTEND Internal Medicine
DX: A41.9 Sepsis, unspecified organism (principal); N17.0 Acute kidney failure with tubular necrosis; K52.9 Noninfective gastroenteritis and colitis, unspecified; E83.51 Hypocalcemia; E87.6 Hypokalemia; E83.39 Other disorders of phosphorus metabolism; Z82.49 Family history of ischemic heart disease and other diseases of the circulatory system
CPT/HCPCS: 36415; 71010; 74176; 74250; 80048; 80053; 81001; 82140; 82550; 82962; 83690; 83735; 84100; 85025; 87040; 87086; 93005; 93010; 96361; 96374; 96375; 99285; J0610; J1644; J1650; J2270; J2405; J2543; J7030; J7040; Q9963